=== PATIENT | female | born 1930 | race Two or more races ===

== ENCOUNTER 2020-04-23 14:50 | Inpatient (IN) | payer MEDICAID ==
[~2020-04-23] VITALS: Ht 157.5 cm; Wt 49.0 kg
--- NOTE | 2020-04-23 15:00 | NUR ---
Dr. Kirk at bedside for MSE
[2020-04-23] MEDS ORDERED: ASCO500C18 PO (15:08)
[2020-04-23] MEDS ORDERED: CHOL10002 PO (15:08)
[2020-04-23] MEDS ORDERED: AMLO5TAB9 PO (15:08)
[2020-04-23] MEDS ORDERED: ASPI-605 PO (15:08)
[2020-04-23] MEDS ORDERED: IV NORMAL SALINE 500 ML BAG IV ONE (15:15)
[2020-04-23 15:38] LABS: BASOPHILS # (AUTO) 0.1 K/uL (0.0-8.0); BASOPHILS % (AUTO) 0.7 % (0.0-2.0); EOSINOPHILS % (AUTO) 0.2 % (0.0-7.0); HEMATOCRIT 37.8 % (31.2-41.9); HEMOGLOBIN 12.1 g/dL (10.9-14.3); LYMPHOCYTES # (AUTO) 1.5 K/uL (20.0-40.0); LYMPHOCYTES % (AUTO) 14.5 % (20.5-51.5); MEAN CORPUSCULAR HEMOGLOBIN 25.9 uug (24.7-32.8); MEAN CORPUSCULAR HGB CONC 32 g/dL (32.3-35.6); MEAN CORPUSCULAR VOLUME 81.2 fL (75.5-95.3); MONOCYTES # (AUTO) 0.7 K/uL (2.0-10.0); MONOCYTES % (AUTO) 6.5 % (0.0-11.0); NEUTROPHILS % (AUTO) 78.1 % (38.5-71.5); PLATELET COUNT (AUTO) 473 K/uL (179-408); RED BLOOD CELL COUNT(AUTO) 4.65 MIL/uL (3.63-4.92); WHITE BLOOD COUNT (AUTO) 10.3 K/uL (3.8-11.8)
[2020-04-23 15:42] LABS: CARBON DIOXIDE 26 mmol/L (21-32); CHLORIDE 103 mmol/L (98-107); CREATININE 1.9 mg/dL (0.6-1.3); GLUCOSE 107 mg/dL (74-106); POTASSIUM 4.9 mmol/L (3.5-5.1); UREA NITROGEN, BLOOD 41 mg/dL (7-18)
[2020-04-23 15:55] LABS: ALANINE AMINOTRANSFERASE 17 U/L (14-59); ALKALINE PHOSPHATASE 165 U/L (50-136); ASPARTATE AMINOTRANSFERASE 21 U/L (15-37); BILIRUBIN,DIRECT 0.2 mg/dL (0.0-0.2); BILIRUBIN,TOTAL 0.5 mg/dL (0.2-1.0); TOTAL PROTEIN, SERUM 7.3 g/dL (6.4-8.2)
--- NOTE | 2020-04-23 16:30 | NUR ---
Pt. admitted to [facility] , under care of Dr. Jj Belongs List completed, MRSA swab done
[2020-04-23 18:29] VITALS: BP 142/56
--- NOTE | 2020-04-23 18:53 | NUR ---
received pt. alert oriented to self indian speaking. IV in R AC 20 gauge intact patent saline lock. pt. on room air saturating well. afebrile. paperwork with order to give 2 L of fluid. Spoke to Dr. Young he is aware of order to give 2 L of fluid he stated he will put the orders in. will endorse to pm nurse.
[2020-04-23] MEDS ORDERED: MAGNESIUM HYDROXIDE 30 ML LIQUID UDC PO PRN (19:00)
[2020-04-23] MEDS ORDERED: ONDANSETRON 4 MG/2 ML VIAL IV PRN (19:00)
[2020-04-23] MEDS ORDERED: HYDROCODONE/APAP 5-325MG TABLET PO PRN (19:00)
[2020-04-23] MEDS ORDERED: Z GUARD REMEDY PASTE 57 GM TUBE TOP PRN (19:00)
[2020-04-23] MEDS ORDERED: ZOLPIDEM 5 MG TABLET PO PRN (19:00)
[2020-04-23] MEDS ORDERED: ACETAMINOPHEN 325 MG TABLET PO PRN (19:00)
--- NOTE | 2020-04-23 20:00 | NUR ---
PATIENT RECEIVED INTO CARE LAYING IN BED ASLEEP, RESTING COMFORTABLY. PATIENT HAS NO S/S OF ACUTE DISTRESS OR DISCOMFORT NOTED/OBSERVED BY THIS NURSE. IV CATH IN RIGHT AC IS PATENT AND INTACT. ALL SAFETY, FALL, AND ISOLATION PRECAUTIONS ARE IN PLACE. CALL LIGHT AND PERSONAL ITEMS ARE WITHIN REACH AT ALL TIMES. WILL CONTINUE TO MONITOR AND ASSESS
[2020-04-23 20:27] VITALS: BP 145/53
[2020-04-24] MEDS: IV D5/ 0.9% NACL 1,000 ML IV PRN ×2 (00:51→23:32)
[2020-04-24 04:30] VITALS: BP 134/49
--- NOTE | 2020-04-24 06:00 | NUR ---
Patient slept throughout night with no complaints of pain and no s/s of acute distress or discomfort noted or observed by this nurse. D5 NS is running at 50mL/hr via 20g IV catheter in right AC. VS are WNL and patient is stable. All safety, fall, and isolation precautions remain in place. Call light and personal items remain within reach.
[2020-04-24 06:57] LABS: BASOPHILS # (AUTO) 0.1 K/uL (0.0-8.0); EOSINOPHILS # (AUTO) 0.1 K/uL (0.0-0.7); EOSINOPHILS % (AUTO) 1.2 % (0.0-7.0); HEMATOCRIT 31.1 % (31.2-41.9); HEMOGLOBIN 10.2 g/dL (10.9-14.3); LYMPHOCYTES # (AUTO) 1.3 K/uL (20.0-40.0); LYMPHOCYTES % (AUTO) 20.1 % (20.5-51.5); MEAN CORPUSCULAR HEMOGLOBIN 26.6 uug (24.7-32.8); MEAN CORPUSCULAR HGB CONC 33 g/dL (32.3-35.6); MEAN CORPUSCULAR VOLUME 80.9 fL (75.5-95.3); MONOCYTES # (AUTO) 0.6 K/uL (2.0-10.0); NEUTROPHILS # (AUTO) 4.5 K/uL (1.8-8.9); NEUTROPHILS % (AUTO) 68.7 % (38.5-71.5); PLATELET COUNT (AUTO) 389 K/uL (179-408); RED BLOOD CELL COUNT(AUTO) 3.85 MIL/uL (3.63-4.92); WHITE BLOOD COUNT (AUTO) 6.6 K/uL (3.8-11.8)
[2020-04-24 07:21] LABS: ALANINE AMINOTRANSFERASE 10 U/L (14-59); ALKALINE PHOSPHATASE 123 U/L (50-136); ASPARTATE AMINOTRANSFERASE 21 U/L (15-37); BILIRUBIN,TOTAL 0.3 mg/dL (0.2-1.0); CARBON DIOXIDE 24 mmol/L (21-32); CHLORIDE 108 mmol/L (98-107); CHOLESTEROL 100 mg/dL (<200); CREATININE 1.4 mg/dL (0.6-1.3); GLUCOSE 81 mg/dL (74-106); HDL CHOLESTEROL 27 mg/dL (40-60); MAGNESIUM 2.4 mg/dL (1.8-2.4); PHOSPHOROUS 3.4 mg/dL (2.5-4.9); POTASSIUM 3.8 mmol/L (3.5-5.1); TOTAL PROTEIN, SERUM 5.7 g/dL (6.4-8.2); TRIGLYCERIDES 64 MG/DL (30-150); UREA NITROGEN, BLOOD 30 mg/dL (7-18)
[2020-04-24 07:33] LABS: CREATINE KINASE, TOTAL 19 U/L (26-192)
[2020-04-24] MEDS: CHOLECALCIFEROL 1,000 UNIT TABLET PO SCH (08:05)
[2020-04-24] MEDS: ASPIRIN EC 81 MG TABLET.DR PO SCH (08:05)
[2020-04-24] MEDS: AMLODIPINE 5 MG TABLET PO SCH (08:23)
--- NOTE | 2020-04-24 09:08 | NUR ---
received pt. resting in bed alert oriented to self vietnamese speaking. IV in R AC 20 gauge intact patent running prescribed fluid. Pt. on room air saturating well at 96%. No cough or sob. pt. is afebrile. safety measures in place. call light within reach. will continue to monitor pt.
[2020-04-24 12:00] VITALS: BP 135/47
[2020-04-24 16:00] VITALS: BP 141/52
--- NOTE | 2020-04-24 20:00 | NUR ---
PATIENT RECEIVED INTO CARE, LAYING IN BED, RESTING COMFORTABLY. PATIENT IS AO X1 AND HAS NO COMPLAINTS OF PAIN OR DISCOMFORT AT THIS TIME AND THERE ARE NO S/S OF ACUTE DISTRESS OR DISCOMFORT NOTED/OBSERVED BY THIS NURSE. ALL SAFETY, FALL, AND ISOLATION PRECAUTIONS ARE IN PLACE. CALL LIGHT AND PERSONAL ITEMS ARE WITHIN REACH AT ALL TIMES. WILL CONTINUE TO MONITOR AND ASSESS.
[2020-04-24 20:18] VITALS: BP 108/39
[2020-04-25 04:12] VITALS: BP 113/41
--- NOTE | 2020-04-25 06:00 | NUR ---
PATIENT SLEPT THROUGHOUT NIGHT WITH NO COMPLAINTS OF PAIN OR DISCOMFORT VERBALIZED AND NO S/S OF ACUTE DISTRESS OR DISCOMFORT NOTED/OBSERVED BY THIS NURSE. ALL VS ARE WNL, ALL NURSING NEEDS MET PROMPTLY, AND PATIENT IS WARM, DRY, AND COMFORTABLE. SAFETY, FALL, AND ISOLATION PRECAUTIONS REMAIN IN PLACE. CALL LIGHT AND PERSONAL ITEMS REMAIN WITHIN REACH AT ALL TIMES.
[2020-04-25] MEDS: ASPIRIN EC 81 MG TABLET.DR PO SCH (09:07)
[2020-04-25] MEDS: CHOLECALCIFEROL 1,000 UNIT TABLET PO SCH (09:07)
[2020-04-25] MEDS: AMLODIPINE 5 MG TABLET PO SCH (09:08)
[2020-04-25 09:30] VITALS: BP 127/54
[2020-04-25] MEDS: IV D5/ 0.9% NACL 1,000 ML IV PRN (16:57)
[2020-04-25 17:03] VITALS: BP 115/49
[2020-04-25 17:51] LABS: BASOPHILS # (AUTO) 0.1 K/uL (0.0-8.0); BASOPHILS % (AUTO) 1.4 % (0.0-2.0); EOSINOPHILS # (AUTO) 0.1 K/uL (0.0-0.7); EOSINOPHILS % (AUTO) 0.8 % (0.0-7.0); HEMOGLOBIN 10.3 g/dL (10.9-14.3); LYMPHOCYTES # (AUTO) 1.6 K/uL (20.0-40.0); LYMPHOCYTES % (AUTO) 22.3 % (20.5-51.5); MEAN CORPUSCULAR HEMOGLOBIN 26.5 uug (24.7-32.8); MEAN CORPUSCULAR HGB CONC 32 g/dL (32.3-35.6); MONOCYTES # (AUTO) 0.6 K/uL (2.0-10.0); MONOCYTES % (AUTO) 7.9 % (0.0-11.0); NEUTROPHILS # (AUTO) 4.8 K/uL (1.8-8.9); NEUTROPHILS % (AUTO) 67.6 % (38.5-71.5); PLATELET COUNT (AUTO) 379 K/uL (179-408); RED BLOOD CELL COUNT(AUTO) 3.91 MIL/uL (3.63-4.92)
[2020-04-25 19:01] LABS: BILIRUBIN,TOTAL 0.2 mg/dL (0.2-1.0); CREATININE 1.2 mg/dL (0.6-1.3); PHOSPHOROUS 2.1 mg/dL (2.5-4.9); POTASSIUM 3.9 mmol/L (3.5-5.1); TOTAL PROTEIN, SERUM 5.4 g/dL (6.4-8.2)
[2020-04-25 20:40] VITALS: BP 139/53
[2020-04-26 06:12] VITALS: BP 143/47
--- NOTE | 2020-04-26 07:00 | NUR ---
Patient slept comfortably throughout the night. No complaints of pain throughout. No signs of acute distress, or SOB. Patients needs attended and met. Safety measures endorsed to oncoming nurse.
--- NOTE | 2020-04-26 08:00 | NUR ---
PATIENT IS ALERT TO SELF WITH CONFUSSION AND DISORIENTATION WITH POOR APPETITE REFUSING TO EAT MUCH OF HER BREAKFAST DESPITE ASSISTANCE AND ENCOURAGEMENT TO EAT.ALL NEEDS ANTICIPATED AND SATISFIED MADE COMFORTABLE WILL CONTINUE TO OBSERVE.
[2020-04-26] MEDS: CHOLECALCIFEROL 1,000 UNIT TABLET PO SCH (08:30)
[2020-04-26] MEDS: ASPIRIN EC 81 MG TABLET.DR PO SCH (08:30)
[2020-04-26] MEDS: AMLODIPINE 5 MG TABLET PO SCH (08:31)
[2020-04-26 09:53] LABS: BASOPHILS # (AUTO) 0.1 K/uL (0.0-8.0); BASOPHILS % (AUTO) 1.1 % (0.0-2.0); EOSINOPHILS % (AUTO) 0.8 % (0.0-7.0); HEMATOCRIT 31.1 % (31.2-41.9); HEMOGLOBIN 10.1 g/dL (10.9-14.3); LYMPHOCYTES # (AUTO) 1.3 K/uL (20.0-40.0); LYMPHOCYTES % (AUTO) 28.2 % (20.5-51.5); MEAN CORPUSCULAR HEMOGLOBIN 26.6 uug (24.7-32.8); MEAN CORPUSCULAR HGB CONC 33 g/dL (32.3-35.6); MEAN CORPUSCULAR VOLUME 81.6 fL (75.5-95.3); MONOCYTES # (AUTO) 0.4 K/uL (2.0-10.0); MONOCYTES % (AUTO) 7.6 % (0.0-11.0); NEUTROPHILS % (AUTO) 62.3 % (38.5-71.5); RED BLOOD CELL COUNT(AUTO) 3.81 MIL/uL (3.63-4.92); WHITE BLOOD COUNT (AUTO) 4.7 K/uL (3.8-11.8)
[2020-04-26 10:22] LABS: PLATELET COUNT (AUTO) 147 K/uL (179-408)
[2020-04-26 10:30] LABS: BILIRUBIN,TOTAL 0.2 mg/dL (0.2-1.0); MAGNESIUM 1.9 mg/dL (1.8-2.4); PHOSPHOROUS 2.3 mg/dL (2.5-4.9); POTASSIUM 3.7 mmol/L (3.5-5.1); TOTAL PROTEIN, SERUM 5.3 g/dL (6.4-8.2)
--- NOTE | 2020-04-26 11:00 | NUR ---
PATIENT SEEN AND EXAMINED BY DR MCCLURE WITH NEW ORDERS AND NOTED.
[2020-04-26] MEDS: FAMOTIDINE 20 MG TABLET PO SCH (11:53)
[2020-04-26 12:00] VITALS: BP 138/58
[2020-04-26] MEDS: IV D5/ 0.9% NACL 1,000 ML IV PRN (15:15)
[2020-04-26] MEDS ORDERED: NEUTRA PHOS PACKET PO ONE (15:15)
[2020-04-26 16:00] VITALS: BP 140/61
--- NOTE | 2020-04-26 18:00 | NUR ---
APPETITE REMAINS POOR PATIENT IS ALERT TO SELF WITH CONFUSSION AND DISORIENTATION ASSISTED AND ENCOURAGED TO EAT ONLY TAKES FEW BITES.
--- NOTE | 2020-04-26 19:00 | NUR ---
PATIENT ALERT BUT FORGETFUL, NO SOB NO CHEST PAIN. PATIENT HAS NO COMPLAIN OF PAIN AT THIS TIME. KEPT CLEAN AND DRY, CONT TO MONITOR.
[2020-04-26 20:34] VITALS: BP 134/59
[2020-04-27 05:47] VITALS: BP 139/50
--- NOTE | 2020-04-27 06:50 | NUR ---
PATIENT AWAKE BUT FORGETFUL, NO SOB NO CHEST PAIN. PATIENT HAS NO COMPLAIN OF PAIN, NO COUGHING NO CONGESTION, NO FEVER. PATIENT WAS KEPT CLEAN AND DRY, INCONTINENCE OF BLADDER. CONT TO MONITOR.
--- NOTE | 2020-04-27 08:00 | NUR ---
Pt is in no acute distress. Alert and oriented x 2 but forgetful secondary to dementia. Pt ate about 50% for breakfast. Late blood draw done by mixing technician. IVF infusing on right arm no swelling and redness noted. Call light is within reach. No isolation covid neg April 23 2020.
[2020-04-27] MEDS: FAMOTIDINE 20 MG TABLET PO SCH (09:16)
[2020-04-27] MEDS: ASPIRIN EC 81 MG TABLET.DR PO SCH (09:16)
[2020-04-27] MEDS: CHOLECALCIFEROL 1,000 UNIT TABLET PO SCH (09:17)
[2020-04-27] MEDS: AMLODIPINE 5 MG TABLET PO SCH (09:20)
[2020-04-27 09:34] LABS: CREATININE 0.9 mg/dL (0.6-1.3); PHOSPHOROUS 2.2 mg/dL (2.5-4.9); POTASSIUM 4.1 mmol/L (3.5-5.1)
[2020-04-27 12:00] VITALS: BP 142/53
[2020-04-27] MEDS ORDERED: FAMO20TA8 PO (14:48)
[2020-04-27] MEDS ORDERED: NEUTRA PHOS PACKET PO ONE (15:15)
[2020-04-27 16:00] VITALS: BP 115/48
--- NOTE | 2020-04-27 17:11 | NUR ---
Discharge order received from DR Cox to send pt back home. Called [facility]. Spoke with Jelena law secretary. Jelena unable to get hold of Director of Resident care and Dowel Sander Operator. Awaiting call back from [facility] to give us ok to send pt back.
--- NOTE | 2020-04-27 18:35 | NUR ---
Spoke with jona MORA window caser covering 3rd floor ms. Pt is ok to go back to [facility]. Pt is to to to room 231-A per Roro Herrera employee wellness/fitness coordinator in [facility]. PT is in no acute distress.
--- NOTE | 2020-04-27 19:20 | NUR ---
Received patient lying in bed. AAOx1 only, mainly confused and disoriented. In no acute distress. Temp at 99.8 orally. Will provided cooling measure and Tylenol 650g PO per order. Patient for discharge to [facility].
--- NOTE | 2020-04-27 20:25 | NUR ---
Telephone call to [facility], spoke to [employer] Caroline. gave report and states understanding.
--- NOTE | 2020-04-27 20:35 | NUR ---
Charge nurse made transportation arrangement with [facility] ambulance. ETA 45 minutes.
[2020-04-27 21:14] VITALS: BP 149/63
--- NOTE | 2020-04-27 21:55 | NUR ---
Patient picker and packer by ambulance via gurney accompanied by 2 paramedics. VS WNL. Discontinued IV site, Name band removed.
[2020-04-29 15:26] LABS: A/G RATIO 0.6 (0.7-1.7); ALPHA-1-GLOBULIN 0.3 g/dL (0.0-0.4); ALPHA-2-GLOBULIN 0.7 g/dL (0.4-1.0); BETA GLOBULIN 0.9 g/dL (0.7-1.3); GAMMA GLOBULIN 1.3 g/dL (0.4-1.8); GLOBULIN, TOTAL 3.2 g/dL (2.2-3.9); M-SPIKE Not Observed g/dL (Not Observed)
== END 2020-04-27 22:10 | DRG 422 ==
LOC: ER 14:50 → MEDSURG3 17:36
PROVIDERS: ADMIT Internal Medicine; ATTEND Internal Medicine
DX: E86.0 Dehydration (principal); N17.0 Acute kidney failure with tubular necrosis; D64.9 Anemia, unspecified; F03.90 Unspecified dementia, unspecified severity, without behavioral disturbance, psychotic disturbance, mood disturbance, and anxiety; I10 Essential (primary) hypertension; Z79.82 Long term (current) use of aspirin; D72.829 Elevated white blood cell count, unspecified; Z68.1 Body mass index [BMI] 19.9 or less, adult; Z86.19 Personal history of other infectious and parasitic diseases; E44.1 Mild protein-calorie malnutrition
CPT/HCPCS: 36415; 70030-TC; 71045; 83550; 83605; 83735; 83970; 84100; 84155; 84165; 85025; 87040; 87400; 93005; A4663; G0378; J3490; J7040; J7042; U0003-CS